=== PATIENT | male | born 1985 | race American Indian/Alaskan Native ===

== ENCOUNTER 2022-03-21 01:43 | Emergency (ER) | payer OTHER ==
[2022-03-21] MEDS ORDERED: ONDANSETRON 4 MG/2 ML INJ IV ONE (03:08)
[2022-03-21] MEDS ORDERED: NALOXONE 2 MG/2 ML INJ IV ONE (03:08)
--- NOTE | 2022-03-21 03:14 | Emergency Department Report ---
HPI - HPI HPI: Room 5 The patient is a 36-year-old male present with a chief complaint of "possible heroin overdose." Per EMS the patient was reportedly at a "trap house" when other occupants called 911 for possible heroin overdose. Bystanders administered an unknown amount of Narcan and EMS arrived on scene to administer another 0.1 mg of Narcan. EMS reports that the patient may have bitten his tongue but there was blood coming from his mouth. No further history was obtained. In the ED the patient is slow to respond and does open his eyes with tactile stimuli but does not respond verbally <PAO PUGH - Last Filed: 03/21/22 05:17> <ARIA ONEILL - Last Filed: 03/21/22 15:10> - General Chief Complaint: Overdose Time Seen by Provider: 03/21/22 03:02 ED Past Medical Hx - Past Medical History Previous Medical History?: No - Surgical History Past Surgical History?: No - Family History Family history: no significant - Social History Smoking Status: Unknown if ever smoked Substance Use Type: Heroin <PAO PUGH - Last Filed: 03/21/22 05:17> <ARIA ONEILL - Last Filed: 03/21/22 15:10> - Medications Home Medications: Home Medications Medication Instructions Recorded Confirmed Last Taken Type Naloxone HCl [Narcan Nasal Belt] 4 mg NS ONCE PRN #1 bottle 03/21/22 Unknown Rx Naloxone HCl [Narcan Nasal Belt] 4 mg NS ONCE PRN #1 bottle 03/21/22 Unknown Rx ED Review of Systems ROS: Stated complaint: OVERDOSE/HEROIN Other details as noted in HPI Comment: Unobtainable due to pts medical conditions <PAO PUGH - Last Filed: 03/21/22 05:17> ROS: Stated complaint: OVERDOSE/HEROIN Other details as noted in HPI <ARIA ONEILL - Last Filed: 03/21/22 15:10> Physical Exam - Physical Exam Vital Signs: Vital Signs 03/21/22 03/21/22 02:04 02:12 Temperature 97.3 F L Pulse Rate 98 H Respiratory 16 Rate Blood Pressure 137/100 O2 Sat by Pulse 100 98 Oximetry Physical Exam: GENERAL: The patient is well-developed well-nourished male lying on stretcher obtunded. [] HEENT: Normocephalic. Atraumatic. Patient has moist mucous membranes. Dried blood along the lower gingiva. NECK: Supple. Trachea midline CHEST/LUNGS: Clear to auscultation. There is no respiratory distress noted. HEART/CARDIOVASCULAR: Regular. There is no tachycardia. There is no gallop rub or murmur. ABDOMEN: Abdomen is soft, nontender. Patient has normal bowel sounds. There is no abdominal distention. SKIN: There is no rash. There is no edema. There is no diaphoresis. NEURO: The patient is obtunded but opens his eyes to tactile stimuli. Patient does not respond verbally MUSCULOSKELETAL: There is no evidence of acute injury. <PAO PUGH K - Last Filed: 03/21/22 05:17> - Physical Exam Vital Signs: Vital Signs 03/21/22 03/21/22 03/21/22 02:04 02:12 07:53 Temperature 97.3 F L Pulse Rate 98 H 90 Respiratory 16 18 Rate Blood Pressure 137/100 Blood Pressure 151/97 [Left] O2 Sat by Pulse 100 98 98 Oximetry 03/21/22 11:57 Temperature Pulse Rate 89 Respiratory 18 Rate Blood Pressure Blood Pressure 126/86 [Left] O2 Sat by Pulse 95 Oximetry <ARIA ONEILL - Last Filed: 03/21/22 15:10> ED Course Vital Signs 03/21/22 03/21/22 02:04 02:12 Temperature 97.3 F L Pulse Rate 98 H Respiratory 16 Rate Blood Pressure 137/100 O2 Sat by Pulse 100 98 Oximetry - Reevaluation(s) Reevaluation #1: 03/21/22 05:17 Patient more arousable at this time. Patient awakens to tactile stimuli and acknowledges he overdosed on heroin and fentanyl. Patient denies any other coingestions. Patient denies IVDA <PAO PUGH - Last Filed: 03/21/22 05:17> Vital Signs 03/21/22 03/21/22 03/21/22 02:04 02:12 07:53 Temperature 97.3 F L Pulse Rate 98 H 90 Respiratory 16 18 Rate Blood Pressure 137/100 Blood Pressure 151/97 [Left] O2 Sat by Pulse 100 98 98 Oximetry 03/21/22 11:57 Temperature Pulse Rate 89 Respiratory 18 Rate Blood Pressure Blood Pressure 126/86 [Left] O2 Sat by Pulse 95 Oximetry <ARIA ONEILL - Last Filed: 03/21/22 15:10> ED Medical Decision Making - Lab Data Result diagrams: 03/21/22 03:24 03/21/22 03:24 - Radiology Data Radiology results: report reviewed (CT head, CT cervical spine, CT facial bones), image reviewed (CT head, CT facial bones, CT cervical spine) [facility] [address] [place] [address] Cat Scan Report Signed Patient: EMERGENCY,MEDICAL MR#: [id number] : 1985 A cct:[id number] Age/Sex: 36 / M ADM Date: 03/21/22 Loc: ED Attending Dr: Ordering Physician: PAO PUGH MD Date of Service: 03/21/22 Procedure(s): CT head/brain wo con Accession Number(s): [id number] cc: PAO PUGH MD CT head/brain wo con, CT facial bones wo con INDICATION: Found down with blood in his mouth. TECHNIQUE: CT head and CT face. All CT scans at this location are performed using CT dose reduction for ALARA by means of automated exposure control. COMPARISON: None. FINDINGS: HEAD: BRAIN PARENCHYMA: No acute intracranial hemorrhage. No evidence of recent infarct. No mass effect or midline shift. VENTRICULAR SYSTEM/EXTRA-AXIAL SPACES: Ventricles are normal for age. No extra- axial fluid collection. CALVARIUM: No acute fracture. FACE: FACIAL BONES:No acute facial fracture. Nasal bones and nasal septum are intact. Bony orbits are intact. The maxilla, pterygoid plates, and zygomatic arches are intact. Mandibular condyles are well-seated within the glenoid fossa of the temporal mandibular joint. SINUSES: Mild mucosal thickening of the ethmoid air cells and left frontal sinus. Other paranasal sinuses are clear. Basilar vessels are patent. ORBITS: Globes are intact. ADDITIONAL FINDINGS:No other significant abnormality. IMPRESSION: 1. No acute intracranial abnormality. 2. No acute facial fracture. Signer Name: Luke Flower MD Signed: 03/21/2022 5:05 AM Workstation Name: [id number] Transcribed By: MANN Dictated By: LUKE FLOWER MD Electronically Authenticated By: LUKE FLOWER MD Signed Date/Time: 03/21/22504 DD/ 7 TD/TT: [address] [address] Cat Scan Report Signed Patient: EMERGENCY,MEDICAL MR#: [id number] : 1985 Acct:[id number] Age/Sex: 36 / M ADM Date: 03/21/22 Loc: ED Attending Dr: Ordering Physician: PAO PUGH MD Date of Service: 03/21/22 Procedure(s): CT facial bones wo con Accession Number(s): [id number] cc: PAO PUGH MD CT head/brain wo con, CT facial bones wo con INDICATION: Found down with blood in his mouth. TECHNIQUE: CT head and CT face. All CT scans at this location are performed usi ng CT dose reduction for ALARA by means of automated exposure control. COMPARISON: None. FINDINGS: HEAD: BRAIN PARENCHYMA: No acute intracranial hemorrhage. No evidence of recent infarct. No mass effect or midline shift. VENTRICULAR SYSTEM/EXTRA-AXIAL SPACES: Ventricles are normal for age. No extra- axial fluid collection. CALVARIUM: No acute fracture. FACE: FACIAL BONES:No acute facial fracture. Nasal bones and nasal septum are intact. Bony orbits are intact. The maxilla, pterygoid plates, and zygomatic arches are intact. Mandibular condyles are well-seated within the glenoid fossa of the temporal mandibular joint. SINUSES: Mild mucosal thickening of the ethmoid air cells and left frontal sinus. Other paranasal sinuses are clear. Basilar vessels are patent. ORBITS: Globes are intact. ADDITIONAL FINDINGS:No other significant abnormality. IMPRESSION: 1. No acute intracranial abnormality. 2. No acute facial fracture. Signer Name: Luke Flower MD Signed: 03/21/2022 5:05 AM Workstation Name: [id number] Transcribed By: MANN Dictated By: LUKE FLOWER MD Electronically Authenticated By: LUKE FLOWER MD Signed Date/Time: 03/21/22504 DD/ 7 TD/TT: [address] [address] Cat Scan Report Signed Patient: EMERGENCY,MEDICAL MR#: [id number] : 1985 Acct:[id number] Age/Sex: 36 / M ADM Date: 03/21/22 Loc: ED Attending Dr: Ordering Physician: PAO PUGH MD Date of Service: 03/21/22 Procedure(s): CT cervical spine wo con Accession Number(s): [id number] cc: PAO PUGH MD CT CERVICAL SPINE WITHOUT CONTRAST INDICATION / CLINICAL INFORMATION: Found down with blood in his mouth. TECHNIQUE: Axial CT images were obtained through the cervical spine. Sagittal and coronal reformatted images were produced. All CT scans at this location are performed using CT dose reduction for ALARA by means of automated exposure control. COMPARISON: None available. FINDINGS: Alignment: Normal. No acute subluxation. Geographic Bone Lesion: None present. Fracture: No acute fracture. Degenerative Changes: No significant spondylosis. Epidural Hematoma: Not present. Prevertebral / Paraspinal Soft Tissues: Unremarkable. IMPRESSION: No acute osseous findings in the cervical spine. Signer Name: Luke Flower MD Signed: 03/21/2022 5:07 AM Workstation Name: [id number] Transcribed By: JS Dictated By: LUKE FLOWER MD Electronically Authenticated By: LUKE FLOWER MD Signed Date/Time: 03/21/22506 DD/ 4 TD/TT: - Differential Diagnosis Opiate overdose, ICH, alcohol intoxication <PAO PUGH - Last Filed: 03/21/22 05:17> - Lab Data Result diagrams: 03/21/22 03:24 03/21/22 03:24 - Medical Decision Making Patient is awake and alert. No complaints. Denies suicidal intent. Will be discharged with Narcan for prescription <ARIA ONEILL - Last Filed: 03/21/22 15:10> Critical care attestation.: If time is entered above; I have spent that time in minutes in the direct care of this critically ill patient, excluding procedure time. <PAO PUGH - Last Filed: 03/21/22 05:17> Critical care attestation.: If time is entered above; I have spent that time in minutes in the direct care of this critically ill patient, excluding procedure time. <ARIA ONEILL - Last Filed: 03/21/22 15:10> ED Disposition <MOSESMikaelaPAO - Last Filed: 03/21/22 05:17> Is pt being admited?: No Does the pt Need Aspirin: No Time of Disposition: 12:47 <ARIA ONEILL - Last Filed: 03/21/22 15:10> Clinical Impression: Opiate overdose, Amphetamine abuse Disposition: 01 HOME / SELF CARE / HOMELESS Condition: Stable Instructions: Opioid Overdose, Amphetamines Use Disorder Additional Instructions: Return to the emergency department should you develop worsening symptoms, inability to tolerate food or liquids, high fever or any other concerns Professional and Agency Contacts To help [facility] (04/03) [place] Crisis Line: Suicide Prevention Line: Crisis Text Line: Text ``START to 802376 Emergency: 911 SUBSTANCE ABUSE PROGRAMS: Sober Living [facility]: Location: [place], [place] [employer] Address: [address] [place] [address] [facility]: Address: [address] [place] [address] [facility]: Address: [address] [place] [address] [facility]: Address: [address] [place] [address] Prescriptions: Naloxone HCl [Narcan Nasal Belt] 4 mg NS ONCE PRN #1 bottle PRN Reason: Opioid Reversal Naloxone HCl [Narcan Nasal Belt] 4 mg NS ONCE PRN #1 bottle PRN Reason: Opioid Reversal [facility]Outside] - 3-5 Days
[2022-03-21 03:37] LABS: Basophils # (Auto) 0.1 K/mm3 (0.0-0.1); Basophils % (Auto) 1.1 % (0.0-1.8); Eosinophils # (Auto) 0.3 K/mm3 (0.0-0.4); Eosinophils % (Auto) 4.2 % (0.0-4.3); Hematocrit 41.5 % (35.5-45.6); Hemoglobin 14.2 gm/dl (11.8-15.2); Lymphocytes # (Auto) 1.6 K/mm3 (1.2-5.4); Lymphocytes % (Auto) 20.7 % (13.4-35.0); Mean Corpuscular HGB Conc 34 % (32-34); Mean Corpuscular Volume 89 fl (84-94); Monocytes % (Auto) 13.9 % (0.0-7.3); Platelet Count 321 K/mm3 (140-440); Red Blood Count 4.68 M/mm3 (3.65-5.03); Red Cell Distribution Width 14.5 % (13.2-15.2)
[2022-03-21 03:55] LABS: INR 0.89 (0.87-1.13)
[2022-03-21 03:56] LABS: Partial Thromboplastin Time 26.6 Sec. (24.2-36.6)
[2022-03-21 03:58] LABS: Creatine Kinase MB 2.8 ng/mL (0.0-4.0)
[2022-03-21 04:00] LABS: Alanine Aminotransferase 25 units/L (7-56); Albumin 4.1 g/dL (3.9-5); BUN/Creatinine Ratio 17; Blood Urea Nitrogen 17 mg/dL (9-20); Calcium 9.1 mg/dL (8.4-10.2); Hemolysis Index 5
--- NOTE | 2022-03-21 05:09 | Cat Scan Report ---
CT head/brain wo con, CT facial bones wo con INDICATION: Found down with blood in his mouth. TECHNIQUE: CT head and CT face. All CT scans at this location are performed using CT dose reduction f or ALARA by means of automated exposure control. COMPARISON: None. FINDINGS: HEAD: BRAIN PARENCHYMA: No acute intracranial hemorrhage. No evidence of recent infarct. No mass effect or midline shift. VENTRICULAR SYSTEM/EXTRA-AXIAL SPACES: Ventricles are normal for age. No extra-axial fluid collection . CALVARIUM: No acute fracture. FACE: FACIAL BONES:No acute facial fracture. Nasal bones and nasal septum are intact. Bony orbits are intac t. The maxilla, pterygoid plates, and zygomatic arches are intact. Mandibular condyles are well-seate d within the glenoid fossa of the temporal mandibular joint. SINUSES: Mild mucosal thickening of the ethmoid air cells and left frontal sinus. Other paranasal sin uses are clear. Basilar vessels are patent. ORBITS: Globes are intact. ADDITIONAL FINDINGS:No other significant abnormality. IMPRESSION: 1. No acute intracranial abnormality. 2. No acute facial fracture. Signer Name: Skyler Flower MD Signed: 03/21/2022 5:05 AM Workstation Name: [id number]
--- NOTE | 2022-03-21 05:11 | Cat Scan Report ---
CT CERVICAL SPINE WITHOUT CONTRAST INDICATION / CLINICAL INFORMATION: Found down with blood in his mouth. TECHNIQUE: Axial CT images were obtained through the cervical spine. Sagittal and coronal reformatted images were produced. All CT scans at this location are performed using CT dose reduction for ALARA by means of automated exposure control. COMPARISON: None available. FINDINGS: Alignment: Normal. No acute subluxation. Geographic Bone Lesion: None present. Fracture: No acute fracture. Degenerative Changes: No significant spondylosis. Epidural Hematoma: Not present. Prevertebral / Paraspinal Soft Tissues: Unremarkable. IMPRESSION: No acute osseous findings in the cervical spine. Signer Name: Skyler Flower MD Signed: 03/21/2022 5:07 AM Workstation Name: [id number]
[2022-03-21 09:10] LABS: Benzodiazepines Screen,Urine Negative; Cannabinoid Screen,Urine Negative; Cocaine Screen,Urine Negative; Methadone Screen,Urine Negative; Opiate Screen,Urine Negative
[2022-03-21 09:23] LABS: Amphetamine Screen,Urine Positive
--- NOTE | 2022-03-21 11:18 | Electrocardiograph Report ---
[facility] Test Date: 2022-03-21 Test Time: 02:54:47 Pat Name: GIOVANNI PETE Department: Room: Gender: M Account Manager Trainee: HENNY : 1985 Requested By: PAO PUGH Order Number: [id number] Reading MD: Navarro Britt Measurements Intervals Ailey Rate: 70 P: 35 NM: 179 QRS: 6 QRSD: 87 T: 21 QT: 391 QTc: 423 Interpretive Statements Sinus rhythm Low voltage, precordial leads ST elev, probable normal early repol pattern No previous ECG available for comparison Electronically Signed On 03-21-2022 11:18:24 EDT by Navarro Britt
[2022-03-21 12:01] VITALS: BP 126/86
== END 2022-03-21 12:12 | disposition home or self-care (01) ==
LOC: ED 01:43
DX: T40.601A Poisoning by unspecified narcotics, accidental (unintentional), initial encounter (principal); F15.10 Other stimulant abuse, uncomplicated
CPT/HCPCS: 36415; 70450; 70486; 72125; 80053; 80307; 82140; 82550; 82553; 84484; 85025; 85610; 85730; 93005; 96374; 96375; 99284; J2310; J2405; 80320; G0480